=== PATIENT | male | born 1990 | race Caucasian/White ===

== ENCOUNTER 2017-02-12 21:14 | Emergency (ER) | payer BC ==
[2017-02-12] MEDS ORDERED: DIPHENHYDRAMINE HCL 50 MG/ML VIAL IV ONE (23:46)
[2017-02-12] MEDS ORDERED: NORMAL SALINE 1000 ML 1,000 ML IV ONE (23:46)
[2017-02-12] MEDS ORDERED: KETOROLAC TROMETHAMINE INJ/PF 30 MG/1 ML SDV IV ONE (23:47)
[2017-02-12] MEDS ORDERED: PROCHLORPERAZINE EDISYLATE INJ 10 MG/2 ML VIAL IV ONE (23:47)
--- NOTE | 2017-02-13 00:12 | ER Document Report ---
ED General - General Chief Complaint: Nausea/Vomiting Stated Complaint: HEADACHE/VOMITING/ABDOMINAL PAIN Time Seen by Provider: 02/12/17 23:46 Notes: Patient is a 26-year-old male with past medical history of irritable bowel syndrome who presents with 2 weeks of persistent vomiting, decreased frequency of bowel movements, and 3 days of a bitemporal headache. Patient states the headache is a dull, constant, aching pain that is worsened by light and sound. He has tried ibuprofen without improvement of the headache. States had a history of similar headaches in the past. This headache was gradual in onset. Regarding his nausea and vomiting: Patient states that he has had similar symptoms in the past with exacerbations of irritable bowel syndrome. He has been taking hyostigmine as well as Protonix and Phenergan without any resolution of his nausea, abdominal pain, and vomiting. He has spoken with his GI physician regarding today's presentation and is scheduled for an upper endoscopy next week. TRAVEL OUTSIDE OF THE [place] IN LAST 30 DAYS: No - Related Data Allergies/Adverse Reactions: morphine [Morphine] Allergy (Mild, Verified 02/12/17 22:01) rash pseudoephedrine HCl [From Sudafed] Allergy (Verified 02/12/17 22:01) bee stings Allergy (Severe, Uncoded 02/12/17 22:01) Past Medical History - General Information source: Patient - Social History Smoking Status: Never Smoker Frequency of alcohol use: None Drug Abuse: None Lives with: Spouse/Significant other Family History: Hypertension Patient has suicidal ideation: No Patient has homicidal ideation: No Pulmonary Medical History: Reports: Hx Bronchitis Renal/ Medical History: Reports: Hx Kidney Stones. Denies: Hx Peritoneal Dialysis Musculoskeltal Medical History: Reports Hx Musculoskeletal Trauma Psychiatric Medical History: Reports: Hx Depression Traumatic Medical History: Reports: Hx Fractures - toe Past Surgical History: Reports: Hx Appendectomy, Hx Cholecystectomy, Hx Tonsillectomy - Immunizations Immunizations up to date: Yes Hx Diphtheria, Pertussis, Tetanus Vaccination: Yes Review of Systems - Review of Systems Notes: Constitutional: Negative for fever. HENT: Negative for sore throat. Eyes: Negative for visual changes. Cardiovascular: Negative for chest pain. Respiratory: Negative for shortness of breath. Gastrointestinal: Positive for diffuse abdominal pain nausea and vomiting Genitourinary: Negative for dysuria. Musculoskeletal: Negative for back pain. Skin: Negative for rash. Neurological: Positive for headaches, negative for weakness or numbness. 10 point ROS negative except as marked above and in HPI. Physical Exam - Vital signs Vitals: Temp Pulse Resp BP Pulse Ox 98.4 F 90 16 141/89 H 99 02/12/17 21:54 02/12/17 21:54 02/12/17 21:54 02/12/17 21:54 02/12/17 21:54 Interpretation: Normal Notes: PHYSICAL EXAMINATION: GENERAL: Appears tired, moderately uncomfortable but in no acute distress HEAD: Atraumatic, normocephalic. EYES: Pupils equal round and reactive to light, extraocular movements intact, sclera anicteric, conjunctiva are normal. ENT: nares patent, oropharynx clear without exudates. Moderately dry mucous membranes. NECK: Normal range of motion, supple without lymphadenopathy LUNGS: Breath sounds clear to auscultation bilaterally and equal. No wheezes rales or rhonchi. HEART: Regular rate and rhythm without murmurs ABDOMEN: Soft, diffuse mild tenderness on exam, normoactive bowel sounds. No guarding, no rebound. No masses appreciated. EXTREMITIES: Normal range of motion, no pitting or edema. No cyanosis. NEUROLOGICAL: Face symmetric. Tongue protrudes midline. Extraocular motions intact. Pupils are 2 mm and equally reactive. Normal speech, normal gait. 5 out of 5 strength in both the distal and proximal upper and lower extremities bilaterally. Sensation is grossly intact throughout. Finger to nose testing normal. Pronator drift normal. PSYCH: Normal mood, normal affect. SKIN: Warm, Dry, normal turgor, no rashes or lesions noted. Course - Re-evaluation Re-evalutation: 02/13/17 00:11 Patient presents with 2 weeks of intermittent vomiting, minimal stool output, and a migraine headache which is a typical headache for him. Patient has a history of irritable bowel syndrome and similar exacerbations in the past. On examination he is nontoxic in appearance, vitals within normal limits, no focal abdominal tenderness on exam. He has a remote history of a cholecystectomy and appendectomy. His histories are not consistent with an acute obstruction. He does appear mildly dehydrated on examination. In regards to the patient's headache: Headache was not maximal in onset, patient has no focal neurologic deficits, no nuchal rigidity, vital signs within normal limits, no papilledema, and patient is overall well in appearance. Based on clinical history and examination I do not suspect an acute subarachnoid hemorrhage, dural venous sinus thrombosis, acute meningitis, or intercranial mass. Given my low clinical suspicion for any acute life-threatening etiology, I do not feel advanced neuro imaging is indicated. Will proceed with headache cocktail and reassess. 02/13/17 02:17 Patient has had resolution of his headache and has not had any additional episodes of vomiting while here in the emergency department. He has tolerated oral intake without difficulty. His laboratories are unremarkable and do not show any evidence of significant dehydration, hepatitis, or acute leukocytosis. KUB without evidence of obstruction or perforation. At this time will discharge with return precautions and follow-up recommendations. Verbal discharge instructions given a the bedside and opportunity for questions given. Medication warnings reviewed. Patient is in agreement with this plan and has verbalized understanding of return precautions and the need for primary care follow-up in the next 24-72 hours. - Vital Signs Vital signs: Temp Pulse Resp BP Pulse Ox 98.4 F 90 16 141/89 H 99 02/12/17 21:54 02/12/17 21:54 02/12/17 21:54 02/12/17 21:54 02/12/17 21:54 - Laboratory Result Diagrams: 02/13/17 00:28 02/13/17 00:28 - Diagnostic Test Radiology reviewed: Image reviewed, Reports reviewed Radiology results interpreted by me: 02/13/17 02:17 KUB: No evidence of obstruction or perforation Discharge - Discharge Clinical Impression: Nausea and vomiting Qualifiers: Vomiting type: unspecified Vomiting Intractability: non-intractable Qualified Code(s): R11.2 - Nausea with vomiting, unspecified Migraine headache Qualifiers: Migraine type: unspecified Status migrainosus presence: with status migrainosus Intractability: not intractable Qualified Code(s): G43.901 - Migraine, unspecified, not intractable, with status migrainosus Additional Instructions: Your labs and x-ray are completely normal today. Your symptoms are likely related to a flare of your irritable bowel syndrome with an associated migraine headache. Please return to the emergency room immediately if you experience any concerning symptoms including high fevers, severe headache, chest pain, difficulty breathing, abdominal pain, slurred speech, numbness or weakness in your arms or legs, or any other symptom that concerns you.
[2017-02-13 00:36] LABS: ABSOLUTE EOSINOPHILS # (AUTO) 0.1 10^3/uL (0.0-0.6); ABSOLUTE LYMPHOCYTES (AUTO) 3.1 10^3/uL (0.5-4.7); ABSOLUTE MONOCYTES (AUTO) 0.5 10^3/uL (0.1-1.4); ABSOLUTE NEUT (AUTO) 3.4 10^3/uL (1.7-8.2); BASOPHILS % (AUTO) 0.5 % (0-2); EOSINOPHILS % (AUTO) 1.3 % (0-6); HEMATOCRIT 46.3 % (37.9-51.0); HEMOGLOBIN 16.4 g/dL (13.5-17.0); HGB HCT DIFFERENCE 2.9; LYMPHOCYTES % (AUTO) 43.4 % (13-45); MEAN CORPUSCULAR HEMOGLOBIN 29.8 pg (27.0-33.4); MEAN CORPUSCULAR HGB CONC 35.3 g/dL (32.0-36.0); MEAN CORPUSCULAR VOLUME 84 fl (80-97); MONOCYTES % (AUTO) 6.5 % (3-13); RED CELL DISTRIBUTION WIDTH 12.7 % (11.5-14.0); SEGMENTED NEUTROPHILS % (AUTO) 48.3 % (42-78); WHITE BLOOD COUNT 7.1 10^3/uL (4.0-10.5)
[2017-02-13 01:08] LABS: ALANINE AMINOTRANSFERASE 32 U/L (21-72); ALBUMIN 4.7 g/dL (3.5-5.0); ALKALINE PHOSPHATASE 72 U/L (38-126); ANION GAP 14 (5-19); ASPARTATE AMINO TRANSFERASE 26 U/L (17-59); BILIRUBIN,DIRECT 0.3 mg/dL (0.0-0.4); BILIRUBIN,TOTAL 0.6 mg/dL (0.2-1.3); BLOOD UREA NITROGEN 13 mg/dL (7-20); CALCIUM 9.8 mg/dL (8.4-10.2); CARBON DIOXIDE 24 mmol/L (22-30); CHLORIDE 104 mmol/L (98-107); CREATININE RESULT 0.82 mg/dL (0.52-1.25); GLUCOSE 96 mg/dL (75-110); LIPASE 72.2 U/L (23-300); POTASSIUM 4.2 mmol/L (3.6-5.0); SODIUM 141.6 mmol/L (137-145); TOTAL PROTEIN 7.6 g/dL (6.3-8.2)
--- NOTE | 2017-02-13 02:23 | RADIOLOGY REPORT (SQ) ---
EXAM DESCRIPTION: KUB/ABDOMEN (SINGLE VIEW) COMPLETED DATE/TIME: 02/13/2017 2:05 am REASON FOR STUDY: abdominal pain, eval sbo COMPARISON: CT abdomen and pelvis 08/08/2017, abdominal series 04/09/2012. NUMBER OF VIEWS: One view. TECHNIQUE: Supine radiographic image of the abdomen acquired. LIMITATIONS: None. FINDINGS: BOWEL GAS PATTERN: Nonobstructive bowel gas pattern. No dilated loops. CALCIFICATIONS: No suspicious calcifications. SOFT TISSUES: No gross mass or suggestion of organomegaly. HARDWARE: Surgical clips in the right upper quadrant. BONES: No acute findings. IMPRESSION: Nonobstructive bowel gas pattern. TECHNICAL DOCUMENTATION: JOB ID: [id number] 2010 [employer]- All Rights Reserved
[2017-02-13 02:41] VITALS: BP 122/76
== END 2017-02-13 02:46 | disposition home or self-care (01) ==
LOC: ER 21:14
DX: G43.901 Migraine, unspecified, not intractable, with status migrainosus (principal); R11.2 Nausea with vomiting, unspecified; K58.0 Irritable bowel syndrome with diarrhea; Z79.899 Other long term (current) drug therapy; Z88.5 Allergy status to narcotic agent; Z88.8 Allergy status to other drugs, medicaments and biological substances; Z91.030 Bee allergy status
CPT/HCPCS: 99284; 96361; 96374; 96375; 36415; 83690; 85025; 74000; 80053; J1200; J1885; J0780; J7030

== ENCOUNTER 2019-01-25 14:09 | Emergency (ER) | payer BC, OTHER ==
[2019-01-25] MEDS ORDERED: NORMAL SALINE 1000 ML 2,000 ML IV ONE (15:16)
--- NOTE | 2019-01-25 15:17 | ER Document Report ---
ED Medical Screen (RME) - General Chief Complaint: Dizziness Stated Complaint: DIZZINESS Time Seen by Provider: 01/25/19 15:07 Primary Care Provider: ANTONIA PRINCE MD [Primary Care Provider] - Follow up as needed Mode of Arrival: Medic Information source: Patient Notes: Patient is an otherwise healthy 28-year-old male presented to the emergency department chief complaint of near syncope and possible heat exhaustion. Patient reports he has been working out in the sun for the last several weeks, states that he just got over a GI bug in which she was vomiting on Wednesday and states that he has been trying to stay hydrated however today he had near syncopal episode. He states that he was seen at an urgent care who contacted 911 to have him transported to the hospital. Exam: Skin flushed. Heart sounds S1-S2 present with no ectopy noted. I have greeted and performed a rapid initial assessment of this patient. A comprehensive ED assessment and evaluation of the patient, analysis of test results and completion of the medical decision making process will be conducted by additional ED providers. I have specifically instructed the patient or family members with the patient to immediately return to any nursing staff should anything change in the patient's condition or with their chief complaint. This medical record was dictated with voice recognizing software. There may be grammatical, syntax errors that are unintended. TRAVEL OUTSIDE OF THE [place] IN LAST 30 DAYS: No - Related Data Allergies/Adverse Reactions: morphine [Morphine] Allergy (Mild, Verified 01/25/19 14:25) rash pseudoephedrine HCl [From Sudafed] Allergy (Verified 01/25/19 14:25) bee stings Allergy (Severe, Uncoded 01/25/19 14:25) Past Medical History - Social History Chew tobacco use (# tins/day): No Frequency of alcohol use: Occasional Drug Abuse: None Pulmonary Medical History: Reports: Hx Bronchitis Renal/ Medical History: Reports: Hx Kidney Stones. Denies: Hx Peritoneal Dialysis Musculoskeltal Medical History: Reports Hx Musculoskeletal Trauma Psychiatric Medical History: Reports: Hx Depression Traumatic Medical History: Reports: Hx Fractures - toe Past Surgical History: Reports: Hx Appendectomy, Hx Cholecystectomy, Hx To nsillectomy - Immunizations Immunizations up to date: Yes Hx Diphtheria, Pertussis, Tetanus Vaccination: Yes Physical Exam - Vital signs Vitals: Temp Pulse Resp BP Pulse Ox 98.2 F 104 H 18 148/96 H 99 01/25/19 14:29 01/25/19 14:29 01/25/19 14:29 01/25/19 14:29 01/25/19 14:29 Course - Vital Signs Vital signs: Temp Pulse Resp BP Pulse Ox 98.2 F 104 H 18 148/96 H 99 01/25/19 14:29 01/25/19 14:29 01/25/19 14:29 01/25/19 14:29 01/25/19 14:29 Doctor's Discharge - Discharge Referrals: ANTONIA PRINCE MD [Primary Care Provider] - Follow up as needed
[2019-01-25 16:08] LABS: ABSOLUTE LYMPHOCYTES (AUTO) 2.6 10^3/uL (0.5-4.7); ABSOLUTE MONOCYTES (AUTO) 0.7 10^3/uL (0.1-1.4); ABSOLUTE NEUT (AUTO) 6.3 10^3/uL (1.7-8.2); BASOPHILS % (AUTO) 0.3 % (0-2); EOSINOPHILS % (AUTO) 0.3 % (0-6); HEMATOCRIT 49.6 % (37.9-51.0); HEMOGLOBIN 16.9 g/dL (13.5-17.0); LYMPHOCYTES % (AUTO) 27.5 % (13-45); MEAN CORPUSCULAR HEMOGLOBIN 28.8 pg (27.0-33.4); MEAN CORPUSCULAR HGB CONC 34.1 g/dL (32.0-36.0); MEAN CORPUSCULAR VOLUME 84 fl (80-97); MONOCYTES % (AUTO) 6.8 % (3-13); PLATELET COUNT 259 10^3/uL (150-450); RED BLOOD COUNT 5.88 10^6/uL (4.35-5.55); RED CELL DISTRIBUTION WIDTH 13.8 % (11.5-14.0); SEGMENTED NEUTROPHILS % (AUTO) 65.1 % (42-78); TOTAL CELLS COUNTED % (AUTO) 100 %; WHITE BLOOD COUNT 9.6 10^3/uL (4.0-10.5)
[2019-01-25 16:11] LABS: APPEARANCE,URINE SLIGHTLY-CLOUDY; BILIRUBIN,URINE NEGATIVE (NEGATIVE); COLOR,URINE YELLOW; GLUCOSE, URINE NEGATIVE (NEGATIVE); KETONES,URINE NEGATIVE (NEGATIVE); LEUKOCYTE ESTERASE,URINE NEGATIVE (NEGATIVE); NITRITE,URINE NEGATIVE (NEGATIVE); PROTEIN,URINE NEGATIVE (NEGATIVE); URINE SPECIFIC GRAVITY 1.008; UROBILINOGEN,URINE NEGATIVE mg/dL (<2.0)
[2019-01-25 16:18] LABS: ALANINE AMINOTRANSFERASE 42 U/L (21-72); ALBUMIN 5.4 g/dL (3.5-5.0); ALKALINE PHOSPHATASE 96 U/L (38-126); ANION GAP 14 (5-19); ASPARTATE AMINO TRANSFERASE 44 U/L (17-59); BILIRUBIN,DIRECT 0.3 mg/dL (0.0-0.4); BILIRUBIN,TOTAL 0.7 mg/dL (0.2-1.3); BLOOD UREA NITROGEN 11 mg/dL (7-20); CALCIUM 10.3 mg/dL (8.4-10.2); CARBON DIOXIDE 27 mmol/L (22-30); CHLORIDE 98 mmol/L (98-107); CREATINE KINASE 231 U/L (55-170); GLUCOSE 87 mg/dL (75-110); POTASSIUM 4.4 mmol/L (3.6-5.0); SODIUM 138.6 mmol/L (137-145); TOTAL PROTEIN 8.9 g/dL (6.3-8.2)
[2019-01-25 16:29] LABS: CREATINE KINASE MB 1.93 ng/mL (<4.55)
[2019-01-25 16:31] LABS: TROPONIN I < 0.012 ng/mL
--- NOTE | 2019-01-25 18:03 | ER Document Report ---
HPI - HPI Time Seen by Provider: 01/25/19 15:07 Pain Level: 3 Notes: Patient is an otherwise healthy 28-year-old male presented to the emergency department chief complaint of near syncope and possible heat exhaustion. Patient reports he has been working out in the sun for the last several weeks, states that he just got over a GI bug in which she was vomiting on Wednesday and states that he has been trying to stay hydrated however today he had near syncopal episode. He states that he was seen at an urgent care who contacted 911 to have him transported to the hospital. - DERM Skin Color: Normal Past Medical History - General Information source: Patient - Social History Smoking Status: Never Smoker Chew tobacco use (# tins/day): No Frequency of alcohol use: Occasional Drug Abuse: None Family History: Hypertension Patient has suicidal ideation: No Patient has homicidal ideation: No Pulmonary Medical History: Reports: Hx Bronchitis Renal/ Medical History: Reports: Hx Kidney Stones. Denies: Hx Peritoneal Dialysis Musculoskeletal Medical History: Reports Hx Musculoskeletal Trauma Psychiatric Medical History: Reports: Hx Depression Traumatic Medical History: Reports: Hx Fractures - toe Past Surgical History: Reports: Hx Appendectomy, Hx Cholecystectomy, Hx Tonsillectomy - Immunizations Immunizations up to date: Yes Hx Diphtheria, Pertussis, Tetanus Vaccination: Yes Vertical Provider Document - CONSTITUTIONAL Notes: PHYSICAL EXAMINATION: GENERAL: Well-appearing, well-nourished and in no acute distress. HEAD: Atraumatic, normocephalic. EYES: Pupils equal round and reactive to light, extraocular movements intact, sclera anicteric, conjunctiva are normal. ENT: Nares patent, oropharynx clear without exudates. Moist mucous membranes. NECK: Normal range of motion, supple without lymphadenopathy LUNGS: Breath sounds clear to auscultation bilaterally and equal. No wheezes rales or rhonchi. HEART: Regular rate and rhythm without murmurs ABDOMEN: Soft, nontender, nondistended abdomen. No guarding, no rebound. No masses appreciated. Musculoskeletal: Normal range of motion, no pitting or edema. No cyanosis. NEUROLOGICAL: Cranial nerves grossly intact. Normal speech, normal gait. Normal sensory, motor exams PSYCH: Normal mood, normal affect. SKIN: Warm, Dry, normal turgor, no rashes or lesions noted. - INFECTION CONTROL TRAVEL OUTSIDE OF THE [place] IN LAST 30 DAYS: No Course - Re-evaluation Re-evalutation: Labs as recorded are unremarkable other than mildly elevated CK. Patient feels much improved after IV fluids. Patient will be discharged home in stable condition, encourage patient to increase his fluid intake. Work note provided. The patient's emergency department workup and current diagnosis were explained to the patient and or family. Follow-up instructions were provided. Medications if prescribed were discussed. Instructions for when to return to the emergency department including specific worrisome symptoms were discussed with the patient and/or family. - Vital Signs Vital signs: Temp Pulse Resp BP Pulse Ox 98.2 F 104 H 18 148/96 H 99 01/25/19 14:29 01/25/19 14:29 01/25/19 14:29 01/25/19 14:29 01/25/19 14:29 - Laboratory Result Diagrams: 01/25/19 15:49 01/25/19 15:49 Laboratory results interpreted by me: 01/25/19 01/25/19 01/25/19 15:49 15:49 15:49 RBC 5.88 H Creatinine 1.46 H Est GFR (Non-Af Amer) 58 L Calcium 10.3 H Creatine Kinase 231 H Total Protein 8.9 H Albumin 5.4 H Urine Blood SMALL H Discharge - Discharge Clinical Impression: Dehydration Condition: Stable Disposition: HOME, SELF-CARE Additional Instructions: You are seen in the emergency department today for possible dehydration and heat injury. Your labs were okay. You [facility] Your CK was mildly elevated but otherwise labs looked okay. Please rest for today and tomorrow, hydrate well. Return to the emergency department for new new or worsening symptoms. Forms: Return to Work Referrals: ANTONIA PRINCE MD [Primary Care Provider] - Follow up as needed
[2019-01-25 18:38] VITALS: BP 148/99
== END 2019-01-25 18:38 | disposition home or self-care (01) ==
LOC: ER 14:09
DX: E86.0 Dehydration (principal); R55 Syncope and collapse; R11.10 Vomiting, unspecified; Z90.49 Acquired absence of other specified parts of digestive tract; Z87.442 Personal history of urinary calculi
CPT/HCPCS: 99284; 96360; 36415; 82553; 82550; 85025; 80053; 81001; 84484; J7030

== ENCOUNTER 2019-06-18 19:10 | Emergency (ER) | payer SELFPAY ==
--- NOTE | 2019-06-18 19:27 | ER Document Report ---
ED Medical Screen (RME) - General Stated Complaint: URINATING PAIN Time Seen by Provider: 06/18/19 19:25 Primary Care Provider: ANTONIA PRINCE MD [Primary Care Provider] - Follow up as needed Mode of Arrival: Ambulatory Information source: Patient Notes: 28-year-old male presented to ED for complaint of pain when he urinates. He states it feels like it stabbing right at the end of his penis. He states he has not had any bloody discharge. He states he has had a kidney stone long time ago but this time had any recent history of a stone. He states the pain with urination has been since Wednesday. He states he is able to urinate it is just very painful. He denies any frequency urgency just a sharp stabbing pain. He states there is no swelling no discoloration any other symptoms. I have greeted and performed a rapid initial assessment of this patient. A comprehensive ED assessment and evaluation of the patient, analysis of test results and completion of medical decision making process will be conducted by an additional ED providers. TRAVEL OUTSIDE OF THE [place] IN LAST 30 DAYS: No - Related Data Allergies/Adverse Reactions: morphine [Morphine] Allergy (Mild, Verified 01/25/19 14:25) rash pseudoephedrine HCl [From Sudafed] Allergy (Verified 01/25/19 14:25) bee stings Allergy (Severe, Uncoded 01/25/19 14:25) Past Medical History Pulmonary Medical History: Reports: Hx Bronchitis Renal/ Medical History: Reports: Hx Kidney Stones. Denies: Hx Peritoneal Dialysis Musculoskeltal Medical History: Reports Hx Musculoskeletal Trauma Psychiatric Medical History: Reports: Hx Depression Traumatic Medical History: Reports: Hx Fractures - toe Past Surgical History: Reports: Hx Appendectomy, Hx Cholecystectomy, Hx Tonsillectomy - Immunizations Immunizations up to date: Yes Hx Diphtheria, Pertussis, Tetanus Vaccination: Yes Physical Exam - Vital signs Vitals: Temp Resp Pulse Ox 98.0 F 16 99 06/18/19 19:20 06/18/19 19:20 06/18/19 19:20 Course - Vital Signs Vital signs: Temp Pulse Resp BP Pulse Ox 98.0 F 99 16 132/76 H 99 06/18/19 19:24 06/18/19 19:24 06/18/19 19:24 06/18/19 19:24 06/18/19 19:24 Doctor's Discharge - Discharge Referrals: ANTONIA PRINCE MD [Primary Care Provider] - Follow up as needed
[2019-06-18] MEDS ORDERED: NORMAL SALINE 500 ML IV ONE (19:28)
[2019-06-18 19:58] LABS: APPEARANCE,URINE CLEAR; BILIRUBIN,URINE NEGATIVE (NEGATIVE); COLOR,URINE YELLOW; GLUCOSE, URINE NEGATIVE (NEGATIVE); KETONES,URINE NEGATIVE (NEGATIVE); PROTEIN,URINE NEGATIVE (NEGATIVE); URINE SPECIFIC GRAVITY 1.024; UROBILINOGEN,URINE NEGATIVE mg/dL (<2.0)
[2019-06-18 20:01] LABS: ABSOLUTE EOSINOPHILS # (AUTO) 0.1 10^3/uL (0.0-0.6); ABSOLUTE LYMPHOCYTES (AUTO) 3.3 10^3/uL (0.5-4.7); ABSOLUTE MONOCYTES (AUTO) 0.7 10^3/uL (0.1-1.4); ABSOLUTE NEUT (AUTO) 4.3 10^3/uL (1.7-8.2); BASOPHILS % (AUTO) 0.4 % (0-2); EOSINOPHILS % (AUTO) 1.1 % (0-6); HEMOGLOBIN 16.8 g/dL (13.5-17.0); MEAN CORPUSCULAR HEMOGLOBIN 29.4 pg (27.0-33.4); MEAN CORPUSCULAR HGB CONC 35.7 g/dL (32.0-36.0); MEAN CORPUSCULAR VOLUME 82 fl (80-97); MONOCYTES % (AUTO) 7.8 % (3-13); PLATELET COUNT 212 10^3/uL (150-450); RED CELL DISTRIBUTION WIDTH 13.3 % (11.5-14.0); SEGMENTED NEUTROPHILS % (AUTO) 51.7 % (42-78); TOTAL CELLS COUNTED % (AUTO) 100 %; WHITE BLOOD COUNT 8.4 10^3/uL (4.0-10.5)
[2019-06-18 20:31] LABS: ALBUMIN 4.9 g/dL (3.5-5.0); ALKALINE PHOSPHATASE 86 U/L (38-126); ANION GAP 12 (5-19); ASPARTATE AMINO TRANSFERASE 27 U/L (17-59); BILIRUBIN,DIRECT 0.1 mg/dL (0.0-0.4); BILIRUBIN,TOTAL 0.6 mg/dL (0.2-1.3); BLOOD UREA NITROGEN 12 mg/dL (7-20); CALCIUM 9.9 mg/dL (8.4-10.2); CARBON DIOXIDE 28 mmol/L (22-30); CHLORIDE 101 mmol/L (98-107); GLUCOSE 94 mg/dL (75-110); POTASSIUM 4.2 mmol/L (3.6-5.0); TOTAL PROTEIN 8.1 g/dL (6.3-8.2)
--- NOTE | 2019-06-18 20:35 | RADIOLOGY REPORT (SQ) ---
EXAM DESCRIPTION: US RETROPERITONEUM COMPLETED DATE/TME: 06/18/2019 19:27 CLINICAL HISTORY: 28 years, Male, Stabbing pain with urination COMPARISON: Prior CT from 08/08/2015 TECHNIQUE: Axial 2-D grayscale images of the retroperitoneum were acquired. Doppler was utilized. LIMITATIONS: None. FINDINGS: Right kidney measures 10.0 x 6.0 x 6.0 cm in size. Left kidney measures 9.7 x 5.2 x 6.5 cm in size. Both kidneys are normal in echogenicity. There is no evidence of hydronephrosis. The urinary bladder is poorly distended. As a result, neither ureteral jet was visualized. IMPRESSION: No acute sonographic abnormality. copyright 2010 [employer]- All Rights Reserved
--- NOTE | 2019-06-18 20:38 | ER Document Report ---
ED GI/ - General Chief Complaint: Pain With Urination Stated Complaint: URINATING PAIN Time Seen by Provider: 06/18/19 19:25 Mode of Arrival: Ambulatory Notes: Patient is a 28-year-old male that comes to the emergency department for chief complaint of painful urination for the past 2 days. He states that it does not hurt in his abdomen, testicles, groin, or flank, he only has pain on the tip of the penis when he is urinating. He denies discharge. He is sexually active with his significant other. He denies injury. He denies history of the same. He does report history of kidney stones but states this feels very different. He denies fever or chills, nausea or vomiting. Remaining medical history includes appendectomy, cholecystectomy, GERD. TRAVEL OUTSIDE OF THE [place] IN LAST 30 DAYS: No - Related Data Allergies/Adverse Reactions: morphine [Morphine] Allergy (Mild, Verified 01/25/19 14:25) rash pseudoephedrine HCl [From Sudafed] Allergy (Verified 01/25/19 14:25) bee stings Allergy (Severe, Uncoded 01/25/19 14:25) Past Medical History - General Information source: Patient - Social History Smoking Status: Never Smoker Drug Abuse: None Lives with: Family Family History: Hypertension Patient has suicidal ideation: No Patient has homicidal ideation: No Pulmonary Medical History: Reports: Hx Bronchitis Renal/ Medical History: Reports: Hx Kidney Stones. Denies: Hx Peritoneal Dialysis Musculoskeletal Medical History: Reports Hx Musculoskeletal Trauma Psychiatric Medical History: Reports: Hx Depression Traumatic Medical History: Reports: Hx Fractures - toe Past Surgical History: Reports: Hx Appendectomy, Hx Cholecystectomy, Hx Tonsillectomy - Immunizations Immunizations up to date: Yes Hx Diphtheria, Pertussis, Tetanus Vaccination: Yes Review of Systems - Review of Systems Constitutional: No symptoms reported EENT: No symptoms reported Cardiovascular: No symptoms reported Respiratory: No symptoms reported Gastrointestinal: No symptoms reported Genitourinary: See HPI Male Genitourinary: No symptoms reported Musculoskeletal: No symptoms reported Skin: No symptoms reported Hematologic/Lymphatic: No symptoms reported Neurological/Psychological: No symptoms reported Physical Exam - Vital signs Vitals: Temp Resp Pulse Ox 98.0 F 16 99 06/18/19 19:20 06/18/19 19:20 06/18/19 19:20 - Notes Notes: GENERAL: Alert, interacts well. No acute distress. HEAD: Normocephalic, atraumatic. EYES: Pupils equal, round, and reactive to light. Extraocular movements intact. ENT: Oral mucosa moist, tongue midline. Oropharynx unremarkable. NECK: Full range of motion. Supple. Trachea midline. LUNGS: Clear to auscultation bilaterally, no wheezes, rales, or rhonchi. No respiratory distress. HEART: Regular rate and rhythm. No murmur ABDOMEN: Soft, non-tender. Non-distended. Bowel sounds present in all 4 quadrants. GENITOURINARY: No swelling, erythema, tenderness, or rash noted over the genitals, scrotum, or groin. No inguinal adenopathy. Patient circumcised. Exam performed with Clarissa CUNNINGHAM at bedside. EXTREMITIES: Moves all 4 extremities spontaneously. No edema, normal radial and dorsalis pedis pulses bilaterally. No cyanosis. BACK: No CVA tenderness. No cervical, thoracic, lumbar midline tenderness. No saddle anesthesia, normal distal neurovascular exam. Moves all extremities in full range of motion. NEUROLOGICAL: Alert and oriented x3. Normal speech. Cranial nerves II through XII grossly intact. PSYCH: Normal affect, normal mood. SKIN: Warm, dry, normal turgor. No rashes or lesions noted. Course - Re-evaluation Re-evalutation: Patient's only symptom is dysuria. He has a soft benign abdomen, genital/groin exam without any concerning findings, patient currently asymptomatic, only has symptoms when urinating. Work-up from triage reviewed including CBC, chemistry, ultrasound and these are unremarkable. Urinalysis shows 2 white blood cells, 2 red blood cells, mildly elevated specific gravity, otherwise unremarkable. We will obtain a dirty urine for gonorrhea and Chlamydia testing, I discussed options with patient including prophylaxis for urethritis with Rocephin and azithromycin. Patient is very agreeable with this pending the results of her culture and remaining tests. I also recommended that this could be simply irritation, he was provided with topical lidocaine for symptom management, he does have a new soap that he started using, I recommended he go back to the previous 1. Discussed follow-up and return precautions. Patient states understanding and agreement. - Vital Signs Vital signs: Temp Pulse Resp BP Pulse Ox 97.9 F 91 15 127/75 H 98 06/18/19 21:32 06/18/19 21:32 06/18/19 21:32 06/18/19 21:32 06/18/19 21:32 - Laboratory Result Diagrams: 06/18/19 19:48 06/18/19 19:48 Laboratory results interpreted by me: 06/18/19 19:48 RBC 5.70 H Discharge - Discharge Clinical Impression: Dysuria Condition: Stable Disposition: HOME, SELF-CARE Additional Instructions: Your work-up does not show any concerning findings, your evaluation is most suggestive of urethritis as we discussed. You have been treated for urethritis but I also recommend that you revert back to the previous soap you were using before. You can also use the provided lidocaine for discomfort if needed. Symptoms should resolve. You will be contacted with any concerning results from the pending results we have. Follow-up with primary care. Return for any concerning symptoms including abdominal pain, vomiting, fever, or any other concerning symptoms.
[2019-06-18] MEDS ORDERED: LIDOCAINE 2% URO-JET 5 ML KIT MM ONE (20:57)
[2019-06-18] MEDS ORDERED: CEFTRIAXONE INJ 250 MG VIAL IM ONE (20:57)
[2019-06-18] MEDS ORDERED: AZITHROMYCIN 250 MG TABLET PO ONE (20:57)
[2019-06-18 21:49] VITALS: BP 127/75
== END 2019-06-18 21:32 | disposition home or self-care (01) ==
LOC: ER 19:10
DX: R30.0 Dysuria (principal); Z88.6 Allergy status to analgesic agent; Z88.5 Allergy status to narcotic agent; Z88.8 Allergy status to other drugs, medicaments and biological substances; Z91.013 Allergy to seafood; Z87.442 Personal history of urinary calculi
CPT/HCPCS: 99284; 96372; 36415; 85025; 80053; 81001; 76770; J0696; J3490

== ENCOUNTER 2019-09-19 04:15 | Emergency (ER) | payer SELFPAY ==
[2019-09-19] MEDS ORDERED: NORMAL SALINE IV ONE (04:36)
[2019-09-19] MEDS ORDERED: IBUPROFEN 800 MG TABLET PO ONE (04:44)
[2019-09-19 05:36] LABS: ABSOLUTE LYMPHOCYTES (AUTO) 0.7 10^3/uL (0.5-4.7); ABSOLUTE MONOCYTES (AUTO) 0.6 10^3/uL (0.1-1.4); ABSOLUTE NEUT (AUTO) 4.9 10^3/uL (1.7-8.2); BASOPHILS % (AUTO) 0.2 % (0-2); EOSINOPHILS % (AUTO) 0.1 % (0-6); HEMOGLOBIN 15.7 g/dL (13.5-17.0); LYMPHOCYTES % (AUTO) 10.9 % (13-45); MEAN CORPUSCULAR HEMOGLOBIN 29.1 pg (27.0-33.4); MEAN CORPUSCULAR VOLUME 83 fl (80-97); MONOCYTES % (AUTO) 10.2 % (3-13); PLATELET COUNT 174 10^3/uL (150-450); SEGMENTED NEUTROPHILS % (AUTO) 78.6 % (42-78); TOTAL CELLS COUNTED % (AUTO) 100 %; WHITE BLOOD COUNT 6.3 10^3/uL (4.0-10.5)
[2019-09-19 05:42] LABS: PROTHROMBIN TIME 14.2 SEC (11.4-15.4)
[2019-09-19 05:46] LABS: VENOUS BLOOD BASE EXCESS -0.9 mmol/L; VENOUS BLOOD HCO3 22.7 mmol/L (20-32); VENOUS BLOOD PCO2 35.1 mmHg (35-63); VENOUS BLOOD PH 7.43 (7.30-7.42)
[2019-09-19 05:58] LABS: ALBUMIN 4.8 g/dL (3.5-5.0); ALKALINE PHOSPHATASE 73 U/L (38-126); ANION GAP 13 (5-19); ASPARTATE AMINO TRANSFERASE 25 U/L (17-59); BILIRUBIN,DIRECT 0.3 mg/dL (0.0-0.4); BILIRUBIN,TOTAL 0.5 mg/dL (0.2-1.3); BLOOD UREA NITROGEN 9 mg/dL (7-20); CALCIUM 9.8 mg/dL (8.4-10.2); CARBON DIOXIDE 24 mmol/L (22-30); CHLORIDE 100 mmol/L (98-107); GLUCOSE 132 mg/dL (75-110); POTASSIUM 4.2 mmol/L (3.6-5.0); TOTAL PROTEIN 8.1 g/dL (6.3-8.2)
[2019-09-19] MEDS ORDERED: ONDANSETRON HCL INJ/PF 4 MG/2 ML SDV IV ONE (06:07)
[2019-09-19] MEDS ORDERED: ACETAMINOPHEN 325 MG TABLET PO ONE (06:08)
--- NOTE | 2019-09-19 06:13 | ER Document Report ---
ED Fever - General Chief Complaint: Fever Stated Complaint: HEADACHE,NOSE BLEED,FEVER Time Seen by Provider: 09/19/19 06:00 Notes: Patient is a 29-year-old male that comes emergency department for chief complaint of fevers, body aches, cough, sore throat, congestion that started just over a day ago. He was seen yesterday morning, had a negative influenza, started on Tamiflu. He states that he felt worse so he came in. He denies vomiting, diarrhea, abdominal pain, difficulty breathing, current headache, neck stiffness, inability to swallow. He states he has been taking a lot of NyQuil and his nose was bleeding yesterday but not today. Past medical history of IBS, GERD, and he has not had the influenza vaccine. TRAVEL OUTSIDE OF THE [place] IN LAST 30 DAYS: No - Related Data Allergies/Adverse Reactions: morphine [Morphine] Allergy (Mild, Verified 01/25/19 14:25) rash mirtazapine [From Remeron] Allergy (Verified 09/19/19 04:26) pseudoephedrine HCl [From Sudafed] Allergy (Verified 01/25/19 14:25) bee stings Allergy (Severe, Uncoded 01/25/19 14:25) Past Medical History - General Information source: Patient - Social History Smoking Status: Former Smoker Chew tobacco use (# tins/day): Yes - 1 can daily Frequency of alcohol use: Occasional Drug Abuse: None Lives with: Family Family History: Hypertension Patient has suicidal ideation: No Patient has homicidal ideation: No Pulmonary Medical History: Reports: Hx Bronchitis Renal/ Medical History: Reports: Hx Kidney Stones. Denies: Hx Peritoneal Dialysis Musculoskeletal Medical History: Reports Hx Musculoskeletal Trauma Psychiatric Medical History: Reports: Hx Depression Traumatic Medical History: Reports: Hx Fractures - toe Past Surgical History: Reports: Hx Appendectomy, Hx Cholecystectomy, Hx Tonsillectomy - Immunizations Immunizations up to date: Yes Hx Diphtheria, Pertussis, Tetanus Vaccination: Yes Review of Systems - Review of Systems Constitutional: See HPI EENT: See HPI Cardiovascular: No symptoms reported Respiratory: See HPI Gastrointestinal: No symptoms reported Genitourinary: No symptoms reported Male Genitourinary: No symptoms reported Musculoskeletal: No symptoms reported Skin: No symptoms reported Hematologic/Lymphatic: No symptoms reported Neurological/Psychological: No symptoms reported Physical Exam - Vital signs Vitals: Temp Pulse Resp BP Pulse Ox 101.4 F H 138 H 20 149/81 H 93 09/19/19 04:27 09/19/19 04:27 09/19/19 04:27 09/19/19 04:27 09/19/19 04:27 - Notes Notes: GENERAL: Alert, interacts well. No acute distress. HEAD: Normocephalic, atraumatic. EYES: Pupils equal, round, and reactive to light. Extraocular movements intact. ENT: Oral mucosa moist, tongue midline. Oropharynx unremarkable. Airway patent. Nares congested, no nasal septal hematoma NECK: Full range of motion. Supple. Trachea midline. Mild anterior cervical adenopathy. LUNGS: Coarse rhonchi in the right lung, otherwise clear, no wheezes, rales. No respiratory distress. HEART: Tachycardic, normal rhythm, no murmur ABDOMEN: Soft, non-tender. Non-distended. EXTREMITIES: Moves all 4 extremities spontaneously. No edema, normal radial and dorsalis pedis pulses bilaterally. No cyanosis. BACK: no cervical, thoracic, lumbar midline tenderness. No saddle anesthesia, normal distal neurovascular exam. Moves all extremities in full range of motion. NEUROLOGICAL: Alert and oriented x3. Normal speech. Cranial nerves II through XII grossly intact. PSYCH: Normal affect, normal mood. SKIN: Flushed Course - Re-evaluation Re-evalutation: Patient with congestion, cough, sore throat, high fever, body aches. Triage protocol had already been initiated which included EKG and troponin, I did review these, they are shows sinus tachycardia and troponin is negative. Chest x-ray unremarkable, strep negative, influenza B is positive this time, CBC, chemistry, lactic acid are all unremarkable. On reevaluation after treatment of fever and with IV fluids patient is much improved, tachycardia is only borderline, he states he feels much better. He is tolerating p.o. without any difficulty. He has no hypoxia, his lungs are clear now, he has no respiratory distress. Patient is already on Tamiflu and will continue this. Provided Phenergan for additional symptom management including intermittent headaches with fevers, discussed primary care follow-up and return precautions with patient and significant other. They state understanding and agreement. Stable at time of discharge. - Vital Signs Vital signs: Temp Pulse Resp BP Pulse Ox 98.6 F 138 H 16 133/56 H 97 03/10/20 07:22 09/19/19 04:27 09/19/19 07:22 09/19/19 07:22 09/19/19 07:22 - Laboratory Result Diagrams: 09/19/19 05:15 09/19/19 05:15 Laboratory results interpreted by me: 09/19/19 09/19/19 09/19/19 05:15 05:15 05:15 Lymph % (Auto) 10.9 L Seg Neutrophils % 78.6 H VBG pH 7.43 H Glucose 132 H POC Glucose Urine Protein 09/19/19 09/19/19 05:28 06:12 Lymph % (Auto) Seg Neutrophils % VBG pH Glucose POC Glucose 116 H Urine Protein 30 H Discharge - Discharge Clinical Impression: Cough, Sinus congestion, Body aches, Influenza B Fever Qualifiers: Fever type: unspecified Qualified Code(s): R50.9 - Fever, unspecified Condition: Stable Disposition: HOME, SELF-CARE Additional Instructions: You have influenza B. This is a viral illness that resolves with time. Continue the Tamiflu, take Phenergan if needed for nausea and to help you sleep, you can also take [id number] medication such as Sudafed, Benadryl/NyQuil (can dry her nose more and cause additional nosebleeds, consider Vaseline or antibiotic in your nose to reduce irritation). I recommend 1000 mg of Tylenol and 600 mg of ibuprofen every 6 hours for fever and body aches. Rest and drink plenty of fluids. Follow-up with primary care. Return if you worsen including difficulty breathing, uncontrolled vomiting, confusion, or any other concerning or worsening symptoms. Prescriptions: Promethazine HCl [Phenergan 25 mg Tablet] 25 mg PO Q6H PRN #20 tablet PRN Reason: Forms: Treatment of Relative/Child
[2019-09-19 06:42] LABS: APPEARANCE,URINE CLEAR; BILIRUBIN,URINE NEGATIVE (NEGATIVE); COLOR,URINE YELLOW; GLUCOSE, URINE NEGATIVE (NEGATIVE); KETONES,URINE NEGATIVE (NEGATIVE); PROTEIN,URINE 30 mg/dL (NEGATIVE); URINE SPECIFIC GRAVITY 1.027; UROBILINOGEN,URINE NEGATIVE mg/dL (<2.0)
[2019-09-19 07:04] LABS: A TYPE INFLUENZA AG NEGATIVE (NEGATIVE); B INFLUENZA AG POSITIVE (NEGATIVE)
--- NOTE | 2019-09-19 07:18 | RADIOLOGY REPORT (SQ) ---
Chest 2 view on 09/19/2019 at 6:42 AM CLINICAL INDICATION: Cough COMPARISON: 01/09/2013 FINDINGS: The lungs are clear. Cardiac, hilar and mediastinal contours are within normal limits. Pulmonary vascularity is within normal limits. No bony abnormality is noted. IMPRESSION: No active disease.
[2019-09-19 07:34] VITALS: BP 133/56
--- NOTE | 2019-09-19 11:39 | EKG REPORT ---
SEVERITY:- OTHERWISE NORMAL ECG - SINUS TACHYCARDIA : Confirmed by: Con Scott 19-Sep-2019 11:38:33
== END 2019-09-19 07:25 | disposition home or self-care (01) ==
LOC: ER 04:15
DX: J10.1 Influenza due to other identified influenza virus with other respiratory manifestations (principal); R05 Cough; R09.81 Nasal congestion; R50.9 Fever, unspecified; R59.0 Localized enlarged lymph nodes; R09.89 Other specified symptoms and signs involving the circulatory and respiratory systems; Z72.0 Tobacco use; Z88.6 Allergy status to analgesic agent; Z88.5 Allergy status to narcotic agent; Z88.8 Allergy status to other drugs, medicaments and biological substances; Z91.030 Bee allergy status
CPT/HCPCS: 93005; 99284; 96361; 96374; 36415; 87040; 87070; 87880; 82962; 83605; 85025; 85610; 80053; 81001; 84484; 82803; 87804; 71046; 93010; J2405; J7030